=== PATIENT | male | born 1990 ===

== ENCOUNTER → 2019-12-18 | Outpatient (REF) | payer OTHER ==
[2019-12-18 12:20] LABS: SEMEN APPEARANCE OPAQUE (OPAQUE); SEMEN VISCOSITY LIQUID (LIQUID); WBC CONCENTRATION >1 M/ml (<=1 M/ml)
[2019-12-18 12:21] LABS: SPERM CONCENTRATION 47.2 M/ml (>=15.0)
== END ==
LOC: M LAB REF 11:06
PROVIDERS: ATTEND Obstetrics & Gynecology
DX: N46.8 Other male infertility (principal)